=== PATIENT | female | born 1965 | race Caucasian/White ===

== ENCOUNTER 2023-01-12 10:01 | Emergency (ER) | payer OTHER, SELFPAY ==
[2023-01-12 10:04] VITALS: BP 128/93; PULSE 97; RESP 18; TEMP 37; O2SAT 97; BMI 27.5
--- NOTE | 2023-01-12 10:18 | ED.WOUNDLAC1 ---
HPI - Wound/Laceration General Chief Complaint: Wound/Laceration Stated Complaint: LOWER EXTREMITY INJURY LEFT FOOT Time Seen by Provider: 01/12/23 10:02 Source: patient Source comment: patient Mode of arrival: walk-in Limitations: no limitations History of Present Illness HPI narrative: 57-year-old female presents for a wound to her left foot. A heavy item fell on her foot today and it avulsed an area of skin on the dorsum of her foot. She's also had a sore throat and congestion. She is worried about having strep throat. It's been many years since her last tetanus shot. Related Data Previous Rx's Medication Instructions Recorded loratadine 5 mg-pseudoephedrine ER 1 tab PO Q12H PRN nasal congestion 01/12/23 120 mg tablet,extended #20 tabs release,12hr (Claritin-D 12 Hour) Allergies Allergy/AdvReac Type Severity Reaction Status Date / Time No Known Drug Allergies Allergy Verified 01/12/23 10:08 Review of Systems ROS Narrative A ten point review of systems is negative except as noted above. Ears, nose, mouth, and throat Reports: throat pain and hoarseness PFSH PFSH Social History Smoking status: Never smoker Exam Narrative Exam Narrative: Nurses note and vital signs reviewed and patient is not hypoxic. General: The patient appears well and in no apparent distress. Patient is resting comfortably on cart. Skin: Warm, dry, no pallor noted. There is no rash noted. Head: Normocephalic, atraumatic Eye: Normal conjunctiva, no drainage Ears, Nose, Mouth, and Throat: oral mucosa is moist. Nares patent. Mouth without vesicles. Ear canals patent. Tm's without Erythema; no pharyngeal exudate or swelling Cardiovascular: Regular Rate and Rhythm Respiratory: Patient is in no distress, no accessory muscle use, lungs are clear to auscultation, no wheezing, rales or rhonchi Back: non-tender GI: nontender Musculoskeletal: there is an avulsion of skin on the dorsum of her left foot approximately 2 1/2 by 1 1/2 cm. No current active bleeding. Neurological: A&O, normal speech Psychiatric: Cooperative Constitutional Vital Signs, click to edit/add: Last Vital Signs Temp 98.6 F 01/12/23 10:04 Pulse 97 H 01/12/23 10:04 Resp 18 01/12/23 10:04 BP 128/93 H 01/12/23 10:04 Pulse Ox 97 01/12/23 10:04 O2 Del Method Room Air 01/12/23 10:04 Course Vital Signs Vital signs: Vital Signs Temperature 98.6 F 01/12/23 10:04 Pulse Rate 97 H 01/12/23 10:04 Respiratory Rate 18 01/12/23 10:04 Blood Pressure 128/93 H 01/12/23 10:04 Pulse Oximetry 97 01/12/23 10:04 Oxygen Delivery Method Room Air 01/12/23 10:04 Temperature 98.6 F 01/12/23 10:04 Pulse Rate 97 H 01/12/23 10:04 Respiratory Rate 18 01/12/23 10:04 Blood Pressure 128/93 H 01/12/23 10:04 Pulse Oximetry 97 01/12/23 10:04 Oxygen Delivery Method Room Air 01/12/23 10:04 MDM - Wound/Laceration MDM Narrative Medical decision making narrative: This skin avulsion does not require sutures. Tetanus is updated and Gelfoam applied as well as a dressing which she'll leave on for forty-eight hours. Strep test is negative and she'll be treated with a decongestant. Treatment diagnosis and follow-up were discussed with the patient. Differential Diagnosis Differential diagnosis: Likely avulsion of skin and other (viral upper respiratory infection, viral pharyngitis, strep throat) Lab Data Attestation: I reviewed the patient's lab results. Labs: Lab Results 01/12/23 Range/Units 10:10 Streptococcus Screen Negative Discharge Plan Discharge Chief Complaint: Wound/Laceration Clinical Impression: Upper respiratory infection, viral, Avulsion of skin Patient Disposition: Home, Self-Care Time of Disposition Decision: 10:28 Condition: Good Mode of Transportation: Private Vehicle Prescriptions / Home Meds: New Claritin-D 12 Hour 5-120 mg tablet extended release 12 hr 1 tab PO Q12H PRN (Reason: nasal congestion) Qty: 20 0RF Instructions: Viral Syndrome (ED), Laceration Without Closure (ED) Stand Alone Forms: Portal Instructions Referrals: Orquidea Hanson MD [Primary Care Provider] - 1 week
[2023-01-12 10:23] LABS: Internal Control Within Normal Limits; Strep A Antigen Screen Negative
[2023-01-12] MEDS: ADACEL DIPH,PERTUSS(ACELL),TET VAC/PF 0.5 ML ADULT SYRINGE IM (10:36)
[2023-01-12] MEDS: SURGIFOAM GEL SPONGE SIZE 100 1 EACH TOPICAL (10:43)
== END 2023-01-12 10:44 | disposition home or self-care (01) ==
PROVIDERS: Emergency Provider Emergency Medicine; PCP Family Medicine
DX: S91.302A Unspecified open wound, left foot, initial encounter (principal); J06.9 Acute upper respiratory infection, unspecified; W20.8XXA Other cause of strike by thrown, projected or falling object, initial encounter; Z23 Encounter for immunization
CPT/HCPCS: 87070; 87880; 90471; 90715; 99284

== ENCOUNTER 2023-12-03 06:56 | Outpatient (RCR) | payer OTHER, SELFPAY | END 2024-04-21 14:34 | disposition home or self-care (01) | LOC: OT 06:56 | PROVIDERS: PCP Family Medicine | DX: S62.101D Fracture of unspecified carpal bone, right wrist, subsequent encounter for fracture with routine healing (principal); S62.102D Fracture of unspecified carpal bone, left wrist, subsequent encounter for fracture with routine healing | CPT/HCPCS: 97018; 97110; 97140; 97167; 97530 ==

== ENCOUNTER 2024-04-22 11:48 | Outpatient (RCR) | payer OTHER, SELFPAY | END 2024-05-06 10:29 | disposition home or self-care (01) | LOC: OT 11:48 | PROVIDERS: PCP Family Medicine | DX: S62.101D Fracture of unspecified carpal bone, right wrist, subsequent encounter for fracture with routine healing (principal); S62.102D Fracture of unspecified carpal bone, left wrist, subsequent encounter for fracture with routine healing; M25.532 Pain in left wrist; M25.531 Pain in right wrist | CPT/HCPCS: 97140; 97530 ==